=== PATIENT | female | born 1950 | race Two or more races ===

== ENCOUNTER 2024-05-28 09:30 | Outpatient (AMB) | payer MEDICARE, MEDICAID, SELFPAY ==
[2024-05-28 09:46] VITALS: BP 139/83; PULSE 83; RESP 18; TEMP 36.8; O2SAT 96; BMI 36.7
--- NOTE | 2024-05-28 09:46 | ORTHONT_ITS ---
Vital signs 05/28/24 09:46 Height 1.52 m Height Method Stated Weight 85.389 kg Weight Measurement Method Standing Scale BMI 36.7 BP 139/83 H Blood Pressure Source Automatic Cuff Blood Pressure Location Right Upper Arm Position Sitting Respiration 18 Pulse 83 Pulse Source Monitor Temp 98.2 F Temp Source Temporal Artery Scan Pulse Oximetry (%) 96 Oxygen Delivery Method Room Air Med/Allergies Allergies & Medications Allergies No Known Drug Allergies Allergy (Verified 05/28/24 09:46) Medication Reconciliation amlodipine 10 mg tablet 10 mg PO QDAY 05/28/24 [History Confirmed 05/28/24] atorvastatin 10 mg tablet 10 mg PO QDAY 05/28/24 [History Confirmed 05/28/24] cholecalciferol (vitamin D3) 25 mcg (1,000 unit) capsule 25 mcg PO QDAY 05/28/24 [History Confirmed 05/28/24] hydrochlorothiazide 25 mg tablet 25 mg PO QDAY 05/28/24 [History Confirmed 05/28/24] Subjective Visit Visit for: new patient and knee Immunization / Flu Flu Vaccine in the Last 12 Months: Yes Flu Vaccine Exclusion Criteria: Already Received History of Present Illness Chief complaint: KNEE PAIN Date of injury / onset of symptoms: 7 MONTHS 73-year-old female complaining of bilateral knee pain right more than left for 1 year. Patient has tried diclofenac cream and does exercises at home. She is using a walker. The pain is affecting her quality life and happiness. She has had extensive injections in her family and reports they do not work and she does not want them. They are very adamant that they do not want injections Personal History Occupation: UNEMPLOYED Red flag PMH: none Pain Pain level (0-10): 6 Pain duration: ALL DAY Pain location: inside (medial), outside (lateral), anterior and posterior Pain quality: sharp, dull and aching Pain timing: increases with activity Associated signs & symptoms: none Ambulatory data Ambulatory device: walker Treatments Improvement with previous injections: No Improvement with PT: No Improvement with NSAIDS: no Review of Systems Review of Systems: All systems negative unless otherwise noted in HPI. Exam Exam Patient is in no acute distress and is cooperative with the examination today. Breathing is nonlabored. In no respiratory distress. Bilateral extremities were evaluated and demonstrates sensation intact to light touch. Palpable pedal pulses are present. No significant edema is present. Bilateral hips were examined. The patient has no pain with log roll of the hips. Internal rotation to 30 degrees and external rotation to 30 degrees is painless. Negative FADIR. The left knee was examined. The left knee is in [varus] alignment. Range of motion from [0-115] degrees. Knee is stable to varus and valgus as well as AP translation with <5mm. Patient has a [negative] McMurrays. There is [no] pain with patellofemoral compression and [no] crepitus noted. The knee is [tender] to palpation [medially]. The right knee was also examined. The right knee is in [varus] alignment. Range of motion from [0-120] degrees. Knee is stable to varus and valgus as well as AP translation with <5mm. Patient has a [negative] McMurrays. There is [no] pain with patellofemoral compression and [no] crepitus noted. The knee is [tender] to palpation [medially]. I have a report from [facility] but no x-rays. This demonstrates severe arthritis according to the report Assessment and Plan Problem List (1) Degenerative arthritis of knee, bilateral: Status: Acute Plan: Patient is a pleasant 73-year-old female with bilateral knee pain and bilateral knee arthritis. We discussed nonoperative operative options. I would like to get x-rays to better evaluate her knee. We can discuss different treatment options depending what that shows Advanced Care Planning Discussion Advance care planning discussed with:: patient Office Procedures GNS Level of Care Nursing/Assessment Patient Status: Established Patient Nursing Assessment/Reassesment: Medication Reconciliation, Update PMH in EMR and Vital Signs Coordination of Care: Complex Care and Chronic Disease 1-5, Education Complex Pt/Fam, Consent,records obtained, informed consent, Results/Orders obtained and Staff clarify orders Special Needs: Language special needs Established Patient Charge Established Patient Point Assignment: 95 Established Patient Point Charge: EP Level 3 (80-115) Past Medical History Past Medical History Have you ever been diagnosed with any of the following: Respiratory Problems Smoking: No Smoking Exposure: No
== END 2024-05-28 10:07 | disposition home or self-care (01) ==
LOC: HODSRG 09:30
PROVIDERS: PCP Internal Medicine; Referring Provider Internal Medicine; Supervising Provider Orthopaedic Surgery Adult Reconstructive Orthopaedic Surgery; Visit Provider Orthopaedic Surgery Adult Reconstructive Orthopaedic Surgery
DX: M17.0 Bilateral primary osteoarthritis of knee (principal); M25.562 Pain in left knee; M25.561 Pain in right knee
CPT/HCPCS: 73562; 99213; G0463

== ENCOUNTER 2024-06-03 10:53 | Outpatient (AMB) | payer MEDICARE, MEDICAID, SELFPAY ==
--- NOTE | 2024-06-03 11:09 | PD.ORTHCLVIS ---
Vital signs 06/03/24 11:10 Height 1.52 m Height Method Stated Weight 85.049 kg Weight Measurement Method Standing Scale BMI 36.8 BP 128/81 Blood Pressure Source Automatic Cuff Blood Pressure Location Right Upper Arm Position Sitting Respiration 18 Pulse 88 Pulse Source Monitor Temp 97.5 F Temp Source Temporal Artery Scan Pulse Oximetry (%) 92 L Oxygen Delivery Method Room Air Med/Allergies Allergies & Medications Allergies No Known Drug Allergies Allergy (Verified 06/03/24 11:10) Medication Reconciliation amlodipine 10 mg tablet 10 mg PO QDAY 05/28/24 [History Confirmed 06/03/24] atorvastatin 10 mg tablet 10 mg PO QDAY 05/28/24 [History Confirmed 06/03/24] cholecalciferol (vitamin D3) 25 mcg (1,000 unit) capsule 25 mcg PO QDAY 05/28/24 [History Confirmed 06/03/24] hydrochlorothiazide 25 mg tablet 25 mg PO QDAY 05/28/24 [History Confirmed 06/03/24] Subjective Visit Visit for: follow up visit and x-rays Immunization / Flu Flu Vaccine in the Last 12 Months: No Flu Vaccine Exclusion Criteria: No Exclusion Criteria History of Present Illness Chief complaint: XRAY RESULTS Date of injury / onset of symptoms: 7 MONTHS 73-year-old female complaining of bilateral knee pain right more than left for 1 year. Patient has tried diclofenac cream and does exercises at home. She is using a walker. The pain is affecting her quality life and happiness. She has had extensive injections in her family and reports they do not work and she does not want them. They are very adamant that they do not want injections. The pain is affecting her quality of life and happiness Personal History Occupation: UNEMPLOYED Red flag PMH: none Pain Pain level (0-10): 4 Pain duration: WITH MOVEMENT Pain location: inside (medial) Pain quality: aching and tingling Pain timing: increases with activity Associated signs & symptoms: numbness and weakness Ambulatory data Ambulatory device: walker Treatments Improvement with previous injections: No Improvement with PT: No Improvement with NSAIDS: no Review of Systems Review of Systems: All systems negative unless otherwise noted in HPI. Exam Exam Patient is in no acute distress and is cooperative with the examination today. Breathing is nonlabored. In no respiratory distress. Bilateral extremities were evaluated and demonstrates sensation intact to light touch. Palpable pedal pulses are present. No significant edema is present. Bilateral hips were examined. The patient has no pain with log roll of the hips. Internal rotation to 30 degrees and external rotation to 30 degrees is painless. Negative FADIR. The left knee was examined. The left knee is in [varus] alignment. Range of motion from [0-115] degrees. Knee is stable to varus and valgus as well as AP translation with <5mm. Patient has a [negative] McMurrays. There is [no] pain with patellofemoral compression and [no] crepitus noted. The knee is [tender] to palpation [medially]. The right knee was also examined. The right knee is in [varus] alignment. Range of motion from [0-120] degrees. Knee is stable to varus and valgus as well as AP translation with <5mm. Patient has a [negative] McMurrays. There is [no] pain with patellofemoral compression and [no] crepitus noted. The knee is [tender] to palpation [medially]. Bilateral knee x-rays demonstrate severe varus deformity over 15 degrees. There is a femoral [place] on the left. There is extensive joint space narrowing bilaterally with varus deformity and osteophytes I have a report from [facility] but no x-rays. This demonstrates severe arthritis according to the report Assessment and Plan Problem List (1) Degenerative arthritis of knee, bilateral: Status: Acute Plan: Patient is a pleasant 73-year-old female with bilateral knee pain and bilateral knee arthritis. We discussed nonoperative operative options. Given her failure conservative treatment, and significant varus deformity, we discussed total knee replacement is reasonable option. She would like to start on the right as this is bothering her more The nature and purpose of the total knee replacement, alternative method(s) of treatment, the material risks involved, and the possibility of complications were fully explained to the patient. The patient does NOT have any of the following contraindications to TKA: - Active infection of the knee joint, OR - Active systemic bacteremia, OR - Active skin infection or open wound at surgical site, OR - Neuropathic arthritis, OR - Severe, rapidly progressive neurological disease, OR - Severe medical condition that makes risks of surgery outweigh the potential benefit The patient was told the most common risks and complications associated with a total knee replacement include, but are not limited to: blood clots in the leg, fatal pulmonary embolism, dislocation of the prosthesis, intraoperative and postoperative fractures of the femur or tibia, infection, failure of the prosthesis or grafting materials, complications from anesthesia, reactions to blood transfusions, postoperative leg length inequality, instability of the knee replacement, nerve damage or injury, vascular injury, delayed wound healing, infection, other injury or even . In addition, there are risks associated with anesthesia given during this operation. Also, the patient was told that after undergoing a total knee replacement there may still be persistent pain or disability. The patient was informed that the success of this operation in part depends upon the mechanical devices which are going to be implanted and that these devices can fail or malfunction, and may need to be repaired or replaced and there are no guarantees as to the longevity of this device or its parts and that it or its parts could fail prematurely. The patient was also notified that during the course of surgery, there may be a need to use bone graft from donors, and that any bone graft used will be carefully screened for communicable diseases, including AIDS, hepatitis, Kevin-Creutzfeldt, or other diseases, but despite the screening procedures, there is a small chance that they could contract one of these diseases. Finally, the patient was asked to follow completely and fully with all advice and recommended treatments, and that recovery and ultimate outcome are affected by their compliance with recommended treatment. We discussed the risks, benefits and treatment alternatives, and the patient is interested in proceeding with surgery. We will try to set this up as expeditiously as possible. Advanced Care Planning Discussion Advance care planning discussed with:: patient Office Procedures GNS Level of Care Nursing/Assessment Patient Status: Established Patient Nursing Assessment/Reassesment: Medication Reconciliation, Update PMH in EMR and Vital Signs Coordination of Care: Complex Care and Chronic Disease 1-5, Education Complex Pt/Fam, Consent,records obtained, informed consent, 1 Ins Authorization, Lab and Imaging orders, Results/Orders obtained and Staff clarify orders Special Needs: Language special needs Established Patient Charge Established Patient Point Assignment: 125 Established Patient Point Charge: EP Level 3 (80-115) Past Medical History Past Medical History Have you ever been diagnosed with any of the following: Respiratory Problems Smoking: No Smoking Exposure: No
[2024-06-03 11:10] VITALS: BP 128/81; PULSE 88; RESP 18; TEMP 36.4; O2SAT 92; BMI 36.8
== END 2024-06-03 11:24 | disposition home or self-care (01) ==
LOC: HODSRG 10:53
PROVIDERS: PCP Internal Medicine; Referring Provider Internal Medicine; Supervising Provider Orthopaedic Surgery Adult Reconstructive Orthopaedic Surgery; Visit Provider Orthopaedic Surgery Adult Reconstructive Orthopaedic Surgery
DX: M17.0 Bilateral primary osteoarthritis of knee (principal); M25.562 Pain in left knee; M25.561 Pain in right knee
CPT/HCPCS: 99213; G0463

== ENCOUNTER 2024-12-24 10:06 | Outpatient (AMB) | payer MEDICARE, MEDICAID, SELFPAY ==
[2024-12-24 10:19] VITALS: BP 142/83; PULSE 95; RESP 18; TEMP 36.3; O2SAT 92; BMI 36.4
--- NOTE | 2024-12-24 10:19 | PD.ORTHCLVIS ---
Vital signs 12/24/24 10:19 Height 1.52 m Height Method Stated Weight 84.17 kg Weight Measurement Method Standing Scale BMI 36.4 BP 142/83 H Blood Pressure Source Automatic Cuff Blood Pressure Location Left Upper Arm Position Sitting Respiration 18 Pulse 95 Pulse Source Monitor Temp 97.3 F Temp Source Temporal Artery Scan Pulse Oximetry (%) 92 L Oxygen Delivery Method Room Air Med/Allergies Allergies & Medications Allergies No Known Drug Allergies Allergy (Verified 12/24/24 10:20) Medication Reconciliation amlodipine 10 mg tablet 10 mg PO QDAY 05/28/24 [History Confirmed 12/24/24] atorvastatin 10 mg tablet 10 mg PO QDAY 05/28/24 [History Confirmed 12/24/24] cholecalciferol (vitamin D3) 25 mcg (1,000 unit) capsule 25 mcg PO QDAY 05/28/24 [History Confirmed 12/24/24] hydrochlorothiazide 25 mg tablet 25 mg PO QDAY 05/28/24 [History Confirmed 12/24/24] Exam Exam Patient is in no acute distress and is cooperative with the examination today. Breathing is nonlabored. In no respiratory distress. Bilateral extremities were evaluated and demonstrates sensation intact to light touch. Palpable pedal pulses are present. No significant edema is present. Bilateral hips were examined. The patient has no pain with log roll of the hips. Internal rotation to 30 degrees and external rotation to 30 degrees is painless. Negative FADIR. The left knee was examined. The left knee is in [varus] alignment. Range of motion from [0-115] degrees. Knee is stable to varus and valgus as well as AP translation with <5mm. Patient has a [negative] McMurrays. There is [no] pain with patellofemoral compression and [no] crepitus noted. The knee is [tender] to palpation [medially]. The right knee was also examined. The right knee is in [varus] alignment. Range of motion from [0-120] degrees. Knee is stable to varus and valgus as well as AP translation with <5mm. Patient has a [negative] McMurrays. There is no pain with patellofemoral compression and no crepitus noted. The knee is [tender] to palpation [medially]. Bilateral knee x-rays demonstrate severe varus deformity over 15 degrees. There is a femoral [place] on the left. There is extensive joint space narrowing bilaterally with varus deformity and osteophytes I have a report from [facility] but no x-rays. This demonstrates severe arthritis according to the report Assessment and Plan Problem List (1) Degenerative arthritis of knee, bilateral: Status: Acute Plan: Patient is a pleasant 73-year-old female with bilateral knee pain and bilateral knee arthritis. We discussed nonoperative operative options. Given her failure conservative treatment, and significant varus deformity, we discussed total knee replacement is reasonable option. She would like to start on the right as this is bothering her more The nature and purpose of the total knee replacement, alternative method(s) of treatment, the material risks involved, and the possibility of complications were fully explained to the patient. The patient does NOT have any of the following contraindications to TKA: - Active infection of the knee joint, OR - Active systemic bacteremia, OR - Active skin infection or open wound at surgical site, OR - Neuropathic arthritis, OR - Severe, rapidly progressive neurological disease, OR - Severe medical condition that makes risks of surgery outweigh the potential benefit The patient was told the most common risks and complications associated with a total knee replacement include, but are not limited to: blood clots in the leg, fatal pulmonary embolism, dislocation of the prosthesis, intraoperative and postoperative fractures of the femur or tibia, infection, failure of the prosthesis or grafting materials, complications from anesthesia, reactions to blood transfusions, postoperative leg length inequality, instability of the knee replacement, nerve damage or injury, vascular injury, delayed wound healing, infection, other injury or even . In addition, there are risks associated with anesthesia given during this operation. Also, the patient was told that after undergoing a total knee replacement there may still be persistent pain or disability. The patient was informed that the success of this operation in part depends upon the mechanical devices which are going to be implanted and that these devices can fail or malfunction, and may need to be repaired or replaced and there are no guarantees as to the longevity of this device or its parts and that it or its parts could fail prematurely. The patient was also notified that during the course of surgery, there may be a need to use bone graft from donors, and that any bone graft used will be carefully screened for communicable diseases, including AIDS, hepatitis, Ekvin-Creutzfeldt, or other diseases, but despite the screening procedures, there is a small chance that they could contract one of these diseases. Finally, the patient was asked to follow completely and fully with all advice and recommended treatments, and that recovery and ultimate outcome are affected by their compliance with recommended treatment. We discussed the risks, benefits and treatment alternatives, and the patient is interested in proceeding with surgery. We will try to set this up as expeditiously as possible. Advanced Care Planning Discussion Advance care planning discussed with:: patient Office Procedures GNS Level of Care Nursing/Assessment Patient Status: Established Patient Nursing Assessment/Reassesment: Medication Reconciliation, Update PMH in EMR and Vital Signs Coordination of Care: Complex Care and Chronic Disease 1-5, Education Complex Pt/Fam, Consent,records obtained, informed consent, Results/Orders obtained and Staff clarify orders Special Needs: Language special needs (UPP[employer] [place] ) Established Patient Charge Established Patient Point Assignment: 95 Established Patient Point Charge: EP Level 3 (80-115) MA Intake Visit Data Collection New Patient or Established: Established Patient (seen at [facility] within 3 years) Reason for Visit:: PRE OP RT KNEE Seen by Clinical Staff ONLY (RN/MA): No Pediatric Registered Nurse Required: Yes PCP or OBGYN visit in last 3 months: Yes Hx Now: No Do You Feel Safe at Home: Yes Authorities Contacted: N/A Questionairres Past Medical History Past Medical History Have you ever been diagnosed with any of the following: Respiratory Problems Smoking: No Smoking Exposure: No Subjective Visit Visit for: follow up visit and knee (PRE OP RIGHT KNEE ) Immunization / Flu Flu Vaccine in the Last 12 Months: Yes Flu Vaccine Exclusion Criteria: Already Received History of Present Illness Chief complaint: bilteral knee 73-year-old female complaining of bilateral knee pain right more than left for 1 year. Patient has tried diclofenac cream and does exercises at home. She is using a walker. The pain is affecting her quality life and happiness. She has had extensive injections in her family and reports they do not work and she does not want them. They are very adamant that they do not want injections. The pain is affecting her quality of life and happiness. Her diabetes is well controlled at this point in time. Personal History Red flag PMH: none Pain Pain level (0-10): 8 Pain duration: 1 YEAR Pain location: anterior Pain quality: burning Pain timing: increases with activity Associated signs & symptoms: weakness and stiffness Ambulatory data Ambulatory device: cane Walking distance (minutes): 1 Treatments Number of previous injections: 0 Number of Physical Therapy sessions: 4 Improvement with PT: No Improvement with NSAIDS: n/a Review of Systems Review of Systems: All systems negative unless otherwise noted in HPI.
== END 2024-12-24 10:28 | disposition home or self-care (01) ==
LOC: HODSRG 10:06
PROVIDERS: PCP Internal Medicine; Referring Provider Internal Medicine; Supervising Provider Orthopaedic Surgery Adult Reconstructive Orthopaedic Surgery; Visit Provider Orthopaedic Surgery Adult Reconstructive Orthopaedic Surgery
DX: M17.0 Bilateral primary osteoarthritis of knee (principal); M25.562 Pain in left knee; M25.561 Pain in right knee; E11.9 Type 2 diabetes mellitus without complications
CPT/HCPCS: 99213; G0463

== ENCOUNTER → 2024-12-24 | Outpatient (CLI) | payer MEDICARE, MEDICAID, SELFPAY ==
--- NOTE | 2024-12-24 10:47 | XR_ITS ---
Examination: CT right lower extremity without contrast. 2-D sagittal reconstructions. 2-D coronal reconstructions. 3-D reconstructions. Date and time of exam:December 24, 2024 1120 hours INDICATIONS: Knee pain, right, several years CTDI: vol (mGy):27.8 DLP: (mGycm):1265 Technique: Multiple 1.25 mm axial sections of the right lower extremity without intravenous contrast have been obtained. 2-D sagittal and coronal reconstructions have been obtained. 3-D reconstructions have been obtained. Low dose protocols were performed. One or more of the following dose reduction techniques were used; automated exposure control, adjustment of the mA and/or KV according to patient size, use of iterative reconstruction technique. Findings: Moderate osteopenia Moderate narrowing right hip joint No hip fracture or dislocation Advanced right knee tricompartment osteoarthritis, severe narrowing medial joint space No patellar dislocation No fracture IMPRESSION: Advanced right knee tricompartment osteoarthritis, including severe narrowing medial joint space
== END | disposition home or self-care (01) ==
PROVIDERS: PCP Internal Medicine; Referring Provider Orthopaedic Surgery Adult Reconstructive Orthopaedic Surgery; Visit Provider Orthopaedic Surgery Adult Reconstructive Orthopaedic Surgery
DX: M25.861 Other specified joint disorders, right knee (principal)
CPT/HCPCS: 73700

== ENCOUNTER → 2024-12-29 | Outpatient (CLI) | payer MEDICARE, MEDICAID, SELFPAY ==
--- NOTE | 2024-12-29 | XR_ITS ---
Examination: CT right lower extremity without intravenous contrast, 2-D sagittal reconstructions. 2-D coronal reconstructions. 3-D reconstructions. Date and time of exam:December 29, 2024 1216 hours INDICATIONS: Diagnosis unilateral right knee osteoarthritis right knee pain for years CTDI: vol (mGy):12.7 DLP: (mGycm):890 Technique: Multiple 1.25 mm axial sections of the right lower extremity without intravenous contrast have been obtained. 2-D sagittal and coronal reconstructions have been obtained. 3-D reconstructions have been obtained. Low dose protocols were performed. One or more of the following dose reduction techniques were used; automated exposure control, adjustment of the mA and/or KV according to patient size, use of iterative reconstruction technique. Findings: Prominent osteopenia Moderate narrowing right hip joint No right hip fracture or dislocation Advanced right knee tricompartment osteoarthritis No right knee fracture No patellar dislocation IMPRESSION: Advanced right knee tricompartment osteoarthritis
== END | disposition home or self-care (01) ==
PROVIDERS: PCP Internal Medicine; Referring Provider Orthopaedic Surgery Adult Reconstructive Orthopaedic Surgery; Visit Provider Orthopaedic Surgery Adult Reconstructive Orthopaedic Surgery
DX: M17.11 Unilateral primary osteoarthritis, right knee (principal)
CPT/HCPCS: 73700

== ENCOUNTER 2025-01-05 06:42 | Day surgery (SDC) | payer MEDICARE, MEDICAID, SELFPAY ==
[2025-01-04 09:29] VITALS: BMI 40.2
--- NOTE | 2025-01-04 09:43 | EKG_ITS ---
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
[2025-01-04 11:25] LABS: Basophils # (Auto) 0.1 Thou/mm3 (0.0-0.2); Basophils % (Auto) 1 % (0-2.5); Eosinophils # (Auto) 0.2 Thou/mm3 (0.0-0.5); Eosinophils % (Auto) 2 % (0-10); Hematocrit 47.2 % (36.0-46.0); Immature Granulocytes % (Auto) 1 % (0-0); Immature Granulocytes Auto 0.05 Thou/mm3 (0.00-0.00); Lymphocytes # (Auto) 2.2 Thou/mm3 (1.0-4.8); Lymphocytes % (Auto) 24 % (10-50); Mean Corpuscular HGB Conc 33.9 g/dl (31.0-37.0); Mean Corpuscular Hemoglobin 32.5 pg (25.0-35.0); Mean Corpuscular Volume 96 fL (80-100); Monocytes # (Auto) 0.7 Thou/mm3 (0.0-0.8); Monocytes % (Auto) 8 % (0-12); Neutrophils # (Auto) 5.8 Thou/mm3 (1.8-7.7); Neutrophils % (Auto) 64 % (37-80); Nucleated Red Blood Cell % 0 /100 WBC (0); Platelet Count 285 Thou/mm3 (140-440); RDW Standard Deviation 51.6 fL (36.4-46.3); Red Blood Count 4.92 Miln/mm3 (4.00-5.20)
[2025-01-04 11:33] LABS: INR 1.1 (0.9-1.3); Prothrombin Time 11.6 Seconds (9.0-12.2)
[2025-01-04 11:38] LABS: Alanine Aminotransferase 29 U/L (10-49); Albumin, Serum 4.4 gm/dL (3.4-4.8); Albumin/Globulin Ratio 1.3 (1.2-2.2); Alkaline Phosphatase 96 U/L (46-116); Anion Gap 11 (7-16); BUN/Creatinine Ratio 15 Ratio (12-20); Blood Urea Nitrogen 12 mg/dL (9-23); Calcium 10.1 mg/dL (8.3-10.6); Calcium (Corrected) 10.1 mg/dL (8.5-10.1); Carbon Dioxide 27.6 mMol/L (20.0-31.0); Chloride 102 mMol/L (98-107); Creatinine (Component) 0.8 mg/dL (0.6-1.3); Estimated Creatinine Clearance 56.3 mL/min (>60); Globulin 3.3 gm/dL (2.3-3.5); Glucose 156 mg/dL (74-106); Osmolality,Calculated 283 (275-295); Sodium 141 mMol/L (136-145); Total Protein 7.7 gm/dL (5.7-8.2); eGFR > 60 See Note
[2025-01-05] VITALS (19 sets, daily range): BP systolic 110–152; BP diastolic 66–104; PULSE 96–122; RESP 12–20; TEMP 36.4–36.9; O2SAT 93–97; BMI 39.4
[2025-01-05] MEDS: MELOXICAM 7.5 MG TABLET PO (07:36)
[2025-01-05] MEDS: ACETAMINOPHEN 325 MG TABLET 650 MG PO (07:36)
[2025-01-05] MEDS: PREGABALIN 75 MG CAPSULE PO (07:36)
--- NOTE | 2025-01-05 12:50 | PD.SUROPNT ---
Date of Procedure 01/05/25 Pre Op Diagnosis right knee osteoarthritis Post Op Diagnosis right knee osteoarthritis Procedure right total knee replacement blake Findings full thickness cartilage loss and osteophytes Procedure Description Indication: The patient is a 74 year old who has a long history of right knee pain. X-rays show degenerative arthritis involving the knee. Over the past several years the patient has had increasing pain, progressive limitation in function. He has failed conservative measures including activity modification, physical therapy, injections, anti-inflammatories, and assistive devices. After a lengthy discussion of the risks and benefits, the patient presents now for total knee replacement. The nature and purpose of the total knee replacement, alternative method(s) of treatment, the material risks involved, and the possibility of complications were fully explained to the patient. The patient was told the most common risks and complications associated with a total knee replacement include, but are not limited to blood clots in the leg, fatal pulmonary embolism, dislocation of the prosthesis, intraoperative and postoperative fractures of the femur or tibia, infection, failure of the prosthesis or grafting materials, complications from anesthesia, reactions to blood transfusions, postoperative leg length inequality, instability of the knee replacement, nerve damage or injury, vascular injury, delayed wound healing, infections, other injury or even . In addition, there are risks associated with anesthesia given during this operation, temporary or permanent numbness on the skin lateral to the incision can be a complication unique to total knee surgery, and kneeling can be painful after knee replacement surgery. Also, the patient was told that after undergoing a total knee replacement there may still be pain or disability. We discussed with the patient that we will be using a robot-assisted technology. We discussed that there is a possibility of converting to manual instrumentation. The patient was informed that the success of this operation in part depends upon the mechanical devices which are going to be implanted and that these devices can fail or malfunction, and may need to be repaired or replaced and there are no guarantees as to the longevity of this device or its part and that it or its parts could fail prematurely. Finally, the patient was asked to follow completely and fully with all advice and recommended treatments, and that recovery and ultimate outcome are affected by their compliance with recommended treatment. Surgical technique: Patient was marked and consented in the pre-operative area. The patient was brought to the operating room and placed on the operating table in a supine position. Prior to positioning, a timeout procedure was performed between the surgeon, the anesthesiologist, and the nursing staff where the patient and the operative side were identified and confirmed. After adequate general anesthetic was obtained, the right lower extremity was prepped and draped in the usual sterile fashion. A weight based dose of Cefazolin were administered within 1 hour prior to incision. The robot was preregistered and calirated before the incision. The extremity was exsanguinated with an esmarch badge and tourniquet inflated to 250mmHg. A midline incision was made. A median parapatellar arthrotomy was made. The patella was subluxed laterally. A medial release was performed to expose the medial tibia. His femoral and tibial pins were placed through an intra incisional manner for both cases. Every effort was made to ensure that the distalmost aspect of the pin was hung in the second cortex. The arrays were then tightened several times to ensure that it was fixed for the remainder of the case. Both femoral and tibial checkpoints were then placed. We then went through the registration process of the bone. We then assessed the knee deformity and attempted to correct it. We also used the robot to aid in judging laxity in both extension and flexion. Final based on laxity and alignment we changed the preoperative assessment to obtain proper proper implant positioning and to correct deformity. Attention was then placed to the tibia. We made a tibial cut using the robot ensuring that both the MCL and the patella tendon were protected with retractors. We then went to the femur and made the posterior cut followed by the anterior cut and the anterior chamfer. The bone was then removed and we made a distal femur cut and a posterior chamfer cut. We verified all cuts. A trial reduction was performed with a size 3 femoral component and a size 3 keeled tibial component. The patella tracked centrally, and no lateral retinacular release was necessary. The trial implants were removed. The arrays, pins, and checkpoints were all removed. We performed a verification that all pins were removed. The cut bone surfaces were lavaged. A size [3 right femoral component, a size 3 keeled tibial component were impacted into position using 2 bags of palacos. A trial insert was placed. The knee was placed in extension until the cement hardened. The knee was felt to be well balanced in the sagittal and coronal plane. The final [3x10 mm cruciate-substituting articular insert was impacted into the tibial tray. The knee was brought out to full extension, flexed up to 120 degrees. It was stable to varus and valgus stress and appropriately balanced in flexion and extension. The wounds were copiously irrigated following deflation of tourniquet. The medial retinaculum was reapproximated with #1 vicryl and quill. The subcutaneous tissues were closed with 0 and 2-0 interrupted Vicryl. The skin was closed with 3-0 Monofilament V loc suture. A sterile dressing was applied. The patient was transferred to a bed and brought to recovery in stable condition. The patient tolerated the procedure well. There were no intraoperative complications. Sponge and needle counts were correct times 2. As the attending surgeon, I attest I was present and performed the entire operation. Grafts/Implants Size 3 CR Femur Size 3 Tibia 11mm poly CS 2 bags of palacos Anesthesia GETA Implants ana Pathology / specimen None Pathology comment: none Estimated Blood Loss 150 Condition Stable Disposition same day Surgeon Shimon Garrison MD Surgical Staff Operation Date: 01/05/25 11:15 Case Staff Anesthesiologist: Nathan White RN First Assistant: Lori Bustamante
--- NOTE | 2025-01-05 12:57 | SUR.PHASEI ---
pt received from OR in recovery bay 5. pt asleep but responds to voice, breathing unlabored on oxymask 10. v/s stable. pt dressing to right lower extremity cdi. report received from Jason Weber and Kal PRESSLEY.
--- NOTE | 2025-01-05 13:47 | XR_ITS ---
Examination: Knee, right , 3 views Technique: Knee AP, lateral, oblique 3 views Date and time of exam: January 05, 2025 1429 hours INDICATIONS: Postop knee replacement. FINDINGS: Total right knee arthroplasty. Satisfactory alignment No fracture IMPRESSION: Total right knee arthroplasty with satisfactory alignment
--- NOTE | 2025-01-05 15:04 | SUR.PHASEI ---
Called Dr. White to report pts elevated heart rate, states will check on pt when finished with surgery. no new orders received.
--- NOTE | 2025-01-05 16:00 | SUR.PHASEII ---
Dr. White at bedside to examine pt. states pt does not require intervention for elevated heart rate, ok with discharge.
--- NOTE | 2025-01-05 16:17 | SUR.PHASEII ---
pt awake and alert, breathing unlabored on room air. v/s stable. pt dressing to right lower extremity cdi. report given to Caor Weiss RN.
--- NOTE | 2025-01-05 16:17 | SUR.PHASEII ---
1617 Report received from Sebastian BECKETT, patient sitting in [place], working with incentive spirometer, breathing unlabored, vital signs stable, denies pain and nausea, will call physical therapy for patient to work with patient
--- NOTE | 2025-01-05 16:25 | SUR.PHASEII ---
[id number] Family at bedside with patient
--- NOTE | 2025-01-05 16:52 | SUR.PHASEII ---
1657 Patient cleared by physical therapy Meryl to proceed with discharge
--- NOTE | 2025-01-05 17:50 | SUR.PHASEII ---
[address] Garrison via telephone that patients pharmacy [facility] in [place] is now close, called the at [phone] and they stated her medication would not be ready until 0930 01/06/2025, Dr. Garrison stated he would put in new prescription for patients pharmacy of choice [facility] [address] in [place] , this internal communications writer will update patient pharmacy [phone] Dr. Garrison notified pharmacy is unable to fill prescription as previous pharmacy [facility] already billed insurance for all the medications, Dr. Garrison advised this internal communications writer to call in-house pharmacy to see if there was anything that could be done for this patient [address] Garrison that in-house pharmacy unable to give patient any medication, Dr. Garrison had this internal communications writer ask patient and her family if they are ok going home and taking Tylenol tonight for pain and picking up medication in the morning as the pharmacy said they would be ready, patient and her family stated they were ok with the plan will proceed with discharge.
--- NOTE | 2025-01-05 18:04 | SUR.PHASEII ---
1804 Patient meets discharge criteria from recovery, awake and alert, breathing unlabored, vital signs stable, denies pain, dressing intact; no bleeding noted, ate a jello and drinking 7up; denies nausea, voided in the restroom prior to discharge, discharge instructions given to patient, her son and sister with the assistance of the telephone clinical pharmacologist Lois ID#[id number], patient sister signed discharge instructions. Patient given all her belongings prior to discharge, transported via wheelchair and left in a private vehicle.
== END 2025-01-05 18:04 | disposition home health service (06) ==
PROVIDERS: Anesthesiology; PCP Internal Medicine; Referring Provider Orthopaedic Surgery Adult Reconstructive Orthopaedic Surgery; Visit Provider Orthopaedic Surgery Adult Reconstructive Orthopaedic Surgery
PROC: (CPT 27447; principal; 2025-01-05 11:00)
DX: M17.11 Unilateral primary osteoarthritis, right knee (principal); Z01.810 Encounter for preprocedural cardiovascular examination; M25.761 Osteophyte, right knee
CPT/HCPCS: 27447; 20985; 36415; 73560; 80053; 85025; 85610; 85730; 93005; 97162; A4217; C1713; C1776; J0690; J1171; J2250; J2371; J2704; J2765; J3010; J3490; J7999; A4648; A4649; A9270; J1805

== ENCOUNTER 2025-01-20 10:48 | Outpatient (AMB) | payer MEDICARE, MEDICAID, SELFPAY ==
--- NOTE | 2025-01-20 11:07 | PD.ORTHCLVIS ---
Vital signs 01/20/25 11:08 Height 1.45 m Height Method Stated Weight 82.809 kg Weight Measurement Method Standing Scale BMI 39.4 BP 135/87 H Blood Pressure Source Automatic Cuff Blood Pressure Location Left Upper Arm Position Sitting Respiration 18 Pulse 106 H Pulse Source Monitor Temp 97.6 F Temp Source Temporal Artery Scan Pulse Oximetry (%) 95 Oxygen Delivery Method Room Air Med/Allergies Allergies & Medications Allergies No Known Drug Allergies Allergy (Verified 01/20/25 11:08) Medication Reconciliation amlodipine 10 mg tablet 10 mg PO QDAY 05/28/24 [History Confirmed 01/20/25] hydrochlorothiazide 25 mg tablet 25 mg PO QDAY 05/28/24 [History Confirmed 01/20/25] atorvastatin 40 mg tablet 40 mg PO QDAY 01/04/25 [History Confirmed 01/20/25] empagliflozin 25 mg tablet (Jardiance) 25 mg PO QAM 01/04/25 [History Confirmed 01/20/25] acetaminophen 500 mg tablet (Acetaminophen Extra Strength) 1,000 mg (2 x 500 mg) PO Q6H PRN pain #90 tabs 01/05/25 [Rx Confirmed 01/20/25] acetaminophen 500 mg tablet (Acetaminophen Extra Strength) 1,000 mg (2 x 500 mg) PO Q6H PRN pain #90 tabs 01/05/25 [Rx Confirmed 01/20/25] aspirin 81 mg tablet,delayed release 81 mg PO BID #60 tabs 01/05/25 [Rx Confirmed 01/20/25] aspirin 81 mg tablet,delayed release 81 mg PO BID #60 tabs 01/05/25 [Rx Confirmed 01/20/25] doxycycline hyclate 100 mg tablet 100 mg PO BID #14 tabs 01/05/25 [Rx Confirmed 01/20/25] doxycycline hyclate 100 mg tablet 100 mg PO BID #14 tabs 01/05/25 [Rx Confirmed 01/20/25] gabapentin 300 mg capsule 300 mg PO .qhs #30 caps 01/05/25 [Rx Confirmed 01/20/25] gabapentin 300 mg capsule 300 mg PO .qhs #30 caps 01/05/25 [Rx Confirmed 01/20/25] oxycodone 5 mg tablet 5 mg PO Q6H PRN pain #28 tabs 01/05/25 [Rx Confirmed 01/20/25] sennosides 8.6 mg-docusate sodium 50 mg tablet (Senna-S) 1 tab-cap PO QDAY #30 tabs 01/05/25 [Rx Confirmed 01/20/25] sennosides 8.6 mg-docusate sodium 50 mg tablet (Senna-S) 1 tab-cap PO QDAY #30 tabs 01/05/25 [Rx Confirmed 01/20/25] Exam Exam Patient is in no acute distress and is cooperative with the examination today. Breathing is nonlabored. In no respiratory distress. Bilateral extremities were evaluated and demonstrates sensation intact to light touch. Palpable pedal pulses are present. No significant edema is present. Bilateral hips were examined. The patient has no pain with log roll of the hips. Internal rotation to 30 degrees and external rotation to 30 degrees is painless. Negative FADIR. The left knee was examined. The left knee is in [varus] alignment. Range of motion from [0-115] degrees. Knee is stable to varus and valgus as well as AP translation with <5mm. Patient has a [negative] McMurrays. There is [no] pain with patellofemoral compression and [no] crepitus noted. The knee is [tender] to palpation [medially]. Right knee incision is clean dry and intact Assessment and Plan Problem List (1) Degenerative arthritis of knee, bilateral: Status: Acute Plan: Patient is a pleasant 73-year-old female with bilateral knee pain and bilateral knee arthritis. She is doing well status post right total knee replacement. She is happy with her pain relief. Will see her in approximately 4 weeks. Will start her with therapy Advanced Care Planning Discussion Advance care planning discussed with:: patient and child Office Procedures GNS Level of Care Nursing/Assessment Patient Status: Established Patient Nursing Assessment/Reassesment: Medication Reconciliation, Update PMH in EMR and Vital Signs Coordination of Care: Complex Care and Chronic Disease 1-5, Education Complex Pt/Fam, Consent,records obtained, informed consent, Results/Orders obtained and Staff clarify orders Established Patient Charge Established Patient Point Assignment: 95 Established Patient Point Charge: EP Level 3 (80-115) MA Intake Visit Data Collection New Patient or Established: Established Patient (seen at [facility] within 3 years) Reason for Visit:: FOLLOW UP Seen by Clinical Staff ONLY (RN/MA): No Coke Production Heater Required: Yes PCP or OBGYN visit in last 3 months: Yes Hx Now: No Do You Feel Safe at Home: Yes Authorities Contacted: N/A Questionairres Past Medical History Past Medical History Have you ever been diagnosed with any of the following: Neurological Problems Seizures: No Cardiology Problems Hypercholesterolemia: Yes Congestive Heart Failure: No Hypertension: Yes Respiratory Problems Chronic Obstructive Pulmonary Disease (COPD): No Smoking: No Smoking Exposure: No Stomache/Intestinal Problems Hepatitis: No Obesity: Yes Genital/Urinary Problems Renal Disease: No Reproductive Problems Previous Pregnancies: Yes Musculoskeletal Problems Arthritis: Yes Fractures: Yes (left femur) Head,Eye,Nose,Throat Problems Cataracts: Yes (bilateral) Endocrine Problems Diabetes Mellitus Type 1: No Diabetes Mellitus Type 2: Yes Other Problems Hospitalization: No Shingles: No Blood Transfusions: No Blood Transfusion Reaction: No Anesthesia Reactions: No Cancer: No Subjective Visit Visit for: follow up visit and knee Immunization / Flu Flu Vaccine in the Last 12 Months: No Flu Vaccine Exclusion Criteria: No Exclusion Criteria History of Present Illness Chief complaint: bilteral knee 73-year-old female complaining of bilateral knee pain right more than left for 1 year. She is doing well status post right total knee replacement. She is 2 weeks postop Personal History Red flag PMH: none Pain Pain level (0-10): 0 Pain duration: 1 YEAR Pain location: anterior Pain quality: burning Pain timing: increases with activity Associated signs & symptoms: none Ambulatory data Ambulatory device: walker Walking distance (minutes): 1 Treatments Number of previous injections: 0 Improvement with previous injections: No Number of Physical Therapy sessions: 4 Improvement with PT: No Improvement with NSAIDS: no Review of Systems Review of Systems: All systems negative unless otherwise noted in HPI.
[2025-01-20 11:08] VITALS: BP 135/87; PULSE 106; RESP 18; TEMP 36.4; O2SAT 95; BMI 39.4
== END 2025-01-20 11:11 | disposition home or self-care (01) ==
PROVIDERS: PCP Internal Medicine; Referring Provider Internal Medicine; Supervising Provider Orthopaedic Surgery Adult Reconstructive Orthopaedic Surgery; Visit Provider Orthopaedic Surgery Adult Reconstructive Orthopaedic Surgery
DX: M17.0 Bilateral primary osteoarthritis of knee (principal); M25.562 Pain in left knee; M25.561 Pain in right knee; Z96.651 Presence of right artificial knee joint; I10 Essential (primary) hypertension; E78.00 Pure hypercholesterolemia, unspecified; E11.9 Type 2 diabetes mellitus without complications
CPT/HCPCS: 99213; G0463

== ENCOUNTER 2025-02-17 13:21 | Outpatient (AMB) | payer MEDICARE, SELFPAY ==
--- NOTE | 2025-02-17 13:52 | ORTHONT_ITS ---
Vital signs 02/17/25 13:56 Height 1.45 m Height Method Stated Weight 82.1 kg Weight Measurement Method Standing Scale BMI 39.0 BP 146/82 H Blood Pressure Source Automatic Cuff Blood Pressure Location Left Upper Arm Position Sitting Respiration 19 Pulse 101 H Pulse Source Monitor Temp 97.4 F Temp Source Temporal Artery Scan Pulse Oximetry (%) 94 L Oxygen Delivery Method Room Air Med/Allergies Allergies & Medications Allergies No Known Drug Allergies Allergy (Verified 02/17/25 13:56) Medication Reconciliation amlodipine 10 mg tablet 10 mg PO QDAY 05/28/24 [History Confirmed 02/17/25] hydrochlorothiazide 25 mg tablet 25 mg PO QDAY 05/28/24 [History Confirmed 02/17/25] atorvastatin 40 mg tablet 40 mg PO QDAY 01/04/25 [History Confirmed 02/17/25] empagliflozin 25 mg tablet (Jardiance) 25 mg PO QAM 01/04/25 [History Confirmed 02/17/25] doxycycline hyclate 100 mg tablet 100 mg PO BID #14 tabs 01/05/25 [Rx Confirmed 02/17/25] gabapentin 300 mg capsule 300 mg PO .qhs #30 caps 01/05/25 [Rx Confirmed 02/17/25] oxycodone 5 mg tablet 5 mg PO Q6H PRN pain #28 tabs 01/05/25 [Rx Confirmed 02/17/25] Exam Exam Patient is in no acute distress and is cooperative with the examination today. Breathing is nonlabored. In no respiratory distress. Bilateral extremities were evaluated and demonstrates sensation intact to light touch. Palpable pedal pulses are present. No significant edema is present. Bilateral hips were examined. The patient has no pain with log roll of the hips. Internal rotation to 30 degrees and external rotation to 30 degrees is painless. Negative FADIR. The left knee was examined. The left knee is in [varus] alignment. Range of motion from [0-115] degrees. Knee is stable to varus and valgus as well as AP translation with <5mm. Patient has a [negative] McMurrays. There is [no] pain with patellofemoral compression and [no] crepitus noted. The knee is [tender] to palpation [medially]. Right knee incision is clean dry and intact. Range of motion is 0 to 105 degrees. He Assessment and Plan Problem List (1) Degenerative arthritis of knee, bilateral: Status: Acute Plan: Patient is a pleasant 73-year-old female with bilateral knee pain and bilateral knee arthritis. She is doing well status post right total knee replacement. We will get new x-rays and see her in approximately 6 weeks Advanced Care Planning Discussion Advance care planning discussed with:: patient Office Procedures GNS Level of Care Nursing/Assessment Patient Status: Established Patient Nursing Assessment/Reassesment: Medication Reconciliation, Update PMH in EMR and Vital Signs Coordination of Care: Complex Care and Chronic Disease 1-5, Education Complex Pt/Fam, Consent,records obtained, informed consent, Results/Orders obtained and Staff clarify orders Special Needs: Language special needs Established Patient Charge Established Patient Point Assignment: 95 Established Patient Point Charge: EP Level 3 (80-115) MA Intake Visit Data Collection New Patient or Established: Established Patient (seen at [facility] within 3 years) Reason for Visit:: 6 WEEK POST OP R TKA Seen by Clinical Staff ONLY (RN/MA): No Organisational Psychologist Required: Yes PCP or OBGYN visit in last 3 months: Yes Hx Now: No Do You Feel Safe at Home: Yes Authorities Contacted: N/A Questionairres Past Medical History Past Medical History Have you ever been diagnosed with any of the following: Neurological Problems Seizures: No Cardiology Problems Hypercholesterolemia: Yes Congestive Heart Failure: No Hypertension: Yes Respiratory Problems Chronic Obstructive Pulmonary Disease (COPD): No Smoking: No Smoking Exposure: No Stomache/Intestinal Problems Hepatitis: No Obesity: Yes Genital/Urinary Problems Renal Disease: No Reproductive Problems Previous Pregnancies: Yes Musculoskeletal Problems Arthritis: Yes Fractures: Yes (left femur) Head,Eye,Nose,Throat Problems Cataracts: Yes (bilateral) Endocrine Problems Diabetes Mellitus Type 1: No Diabetes Mellitus Type 2: Yes Other Problems Hospitalization: No Shingles: No Blood Transfusions: No Blood Transfusion Reaction: No Anesthesia Reactions: No Cancer: No Subjective Visit Visit for: follow up visit, post op #3 and knee Immunization / Flu Flu Vaccine in the Last 12 Months: No Flu Vaccine Exclusion Criteria: No Exclusion Criteria History of Present Illness Chief complaint: Right knee pain Patient is a 74-year-old female with right knee pain and right knee arthritis. She is status post right total knee replacement is doing well. She is very happy with her progress. Pain Pain level (0-10): 0 Ambulatory data Ambulatory device: walker Treatments Improvement with previous injections: No Improvement with PT: No Improvement with NSAIDS: no Review of Systems Review of Systems: All systems negative unless otherwise noted in HPI.
[2025-02-17 13:56] VITALS: BP 146/82; PULSE 101; RESP 19; TEMP 36.3; O2SAT 94; BMI 39.0
== END 2025-02-17 13:58 | disposition home or self-care (01) ==
LOC: HODSRG 13:21
PROVIDERS: PCP Internal Medicine; Referring Provider Internal Medicine; Supervising Provider Orthopaedic Surgery Adult Reconstructive Orthopaedic Surgery; Visit Provider Orthopaedic Surgery Adult Reconstructive Orthopaedic Surgery
DX: M17.0 Bilateral primary osteoarthritis of knee (principal); M25.562 Pain in left knee; M25.561 Pain in right knee; Z96.651 Presence of right artificial knee joint; I10 Essential (primary) hypertension; E78.00 Pure hypercholesterolemia, unspecified; E11.9 Type 2 diabetes mellitus without complications
CPT/HCPCS: 99213; G0463

== ENCOUNTER 2025-04-21 14:26 | Outpatient (AMB) | payer MEDICARE, SELFPAY ==
[2025-04-21 14:47] VITALS: BP 126/86; PULSE 92; RESP 18; TEMP 36.3; O2SAT 95; BMI 37.8
--- NOTE | 2025-04-21 14:47 | PD.ORTHCLVIS ---
Vital signs 04/21/25 14:47 Height 1.45 m Height Method Stated Weight 79.549 kg Weight Measurement Method Standing Scale BMI 37.8 BP 126/86 H Blood Pressure Source Automatic Cuff Blood Pressure Location Left Upper Arm Position Sitting Respiration 18 Pulse 92 Pulse Source Monitor Temp 97.4 F Temp Source Temporal Artery Scan Pulse Oximetry (%) 95 Oxygen Delivery Method Room Air Med/Allergies Allergies & Medications Allergies No Known Drug Allergies Allergy (Verified 04/21/25 14:47) Medication Reconciliation amlodipine 10 mg tablet 10 mg PO QDAY 05/28/24 [History Confirmed 04/21/25] hydrochlorothiazide 25 mg tablet 25 mg PO QDAY 05/28/24 [History Confirmed 04/21/25] atorvastatin 40 mg tablet 40 mg PO QDAY 01/04/25 [History Confirmed 04/21/25] empagliflozin 25 mg tablet (Jardiance) 25 mg PO QAM 01/04/25 [History Confirmed 04/21/25] doxycycline hyclate 100 mg tablet 100 mg PO BID #14 tabs 01/05/25 [Rx Confirmed 04/21/25] gabapentin 300 mg capsule 300 mg PO .qhs #30 caps 01/05/25 [Rx Confirmed 04/21/25] oxycodone 5 mg tablet 5 mg PO Q6H PRN pain #28 tabs 01/05/25 [Rx Confirmed 04/21/25] Exam Exam Patient is in no acute distress and is cooperative with the examination today. Breathing is nonlabored. In no respiratory distress. Bilateral extremities were evaluated and demonstrates sensation intact to light touch. Palpable pedal pulses are present. No significant edema is present. Bilateral hips were examined. The patient has no pain with log roll of the hips. Internal rotation to 30 degrees and external rotation to 30 degrees is painless. Negative FADIR. The left knee was examined. The left knee is in [varus] alignment. Range of motion from [0-115] degrees. Knee is stable to varus and valgus as well as AP translation with <5mm. Patient has a [negative] McMurrays. There is [no] pain with patellofemoral compression and [no] crepitus noted. The knee is [tender] to palpation [medially]. Right knee incision is clean dry and intact. Range of motion is 0 to 105 degrees. X-rays demonstrate an intramedullary nail on the left femur. Significant arthritis is present Assessment and Plan Problem List (1) Degenerative arthritis of knee, bilateral: Status: Acute Plan: Patient is a pleasant 73-year-old female with bilateral knee pain and bilateral knee arthritis. She is doing well status post right total knee replacement. Will get a CT scan to evaluate whether a total knee replacement is possible without removing the hardware Advanced Care Planning Discussion Advance care planning discussed with:: patient Office Procedures GNS Level of Care Nursing/Assessment Patient Status: Established Patient Nursing Assessment/Reassesment: Medication Reconciliation, Update PMH in EMR and Vital Signs Coordination of Care: Complex Care and Chronic Disease 1-5, Education Complex Pt/Fam, Consent,records obtained, informed consent, Results/Orders obtained and Staff clarify orders Special Needs: Language special needs Established Patient Charge Established Patient Point Assignment: 95 Established Patient Point Charge: EP Level 3 (80-115) MA Intake Visit Data Collection New Patient or Established: Established Patient (seen at [facility] within 3 years) Reason for Visit:: REQUESTING PHYSICAL THERAPY Seen by Clinical Staff ONLY (RN/MA): No Private Duty Nurse Required: Yes PCP or OBGYN visit in last 3 months: Yes Hx Now: No Do You Feel Safe at Home: Yes Authorities Contacted: N/A Questionairres Past Medical History Past Medical History Have you ever been diagnosed with any of the following: Neurological Problems Seizures: No Cardiology Problems Hypercholesterolemia: Yes Congestive Heart Failure: No Hypertension: Yes Respiratory Problems Chronic Obstructive Pulmonary Disease (COPD): No Smoking: No Smoking Exposure: No Stomache/Intestinal Problems Hepatitis: No Obesity: Yes Genital/Urinary Problems Renal Disease: No Reproductive Problems Previous Pregnancies: Yes Musculoskeletal Problems Arthritis: Yes Fractures: Yes (left femur) Head,Eye,Nose,Throat Problems Cataracts: Yes (bilateral) Endocrine Problems Diabetes Mellitus Type 1: No Diabetes Mellitus Type 2: Yes Other Problems Hospitalization: No Shingles: No Blood Transfusions: No Blood Transfusion Reaction: No Anesthesia Reactions: No Cancer: No Subjective Visit Visit for: follow up visit and knee Immunization / Flu Flu Vaccine in the Last 12 Months: No Flu Vaccine Exclusion Criteria: No Exclusion Criteria History of Present Illness Chief complaint: Right knee pain HISTORY OF PRESENT ILLNESS IShimon, have obtained verbal consent from the patient, to be recorded during this encounter which may include, but not limited to, medical history, examination, treatment plans, and relevant health information.? Patient was informed that recording will be read and reviewed by myself before inclusion in the medical chart. The patient is a 74-year-old female who presents for evaluation of left knee pain. She is accompanied by an rn coronary care unit. She reports significant discomfort in her left knee, describing it as a sensation of her bones rubbing together upon standing. This is accompanied by a feeling of weakness and instability, leading to a fear of falling. She expresses interest in surgical intervention for this issue. It is noteworthy that she had a argentina implanted in her left knee during a procedure in [place]. Pain Pain level (0-10): 0 Ambulatory data Ambulatory device: walker Treatments Improvement with previous injections: No Improvement with PT: No Improvement with NSAIDS: no Review of Systems Review of Systems: All systems negative unless otherwise noted in HPI.
== END 2025-04-21 14:52 | disposition home or self-care (01) ==
LOC: HODSRG 14:26
PROVIDERS: PCP Internal Medicine; Referring Provider Internal Medicine; Supervising Provider Orthopaedic Surgery Adult Reconstructive Orthopaedic Surgery; Visit Provider Orthopaedic Surgery Adult Reconstructive Orthopaedic Surgery
DX: M17.0 Bilateral primary osteoarthritis of knee (principal); M25.562 Pain in left knee; M25.561 Pain in right knee; Z96.651 Presence of right artificial knee joint; I10 Essential (primary) hypertension; E78.00 Pure hypercholesterolemia, unspecified; E11.9 Type 2 diabetes mellitus without complications; E66.9 Obesity, unspecified; Z68.37 Body mass index [BMI] 37.0-37.9, adult
CPT/HCPCS: 99213; G0463

== ENCOUNTER → 2025-05-03 | Outpatient (CLI) | payer MEDICARE, SELFPAY ==
--- NOTE | 2025-05-03 11:30 | XR_ITS ---
Examination: CT left lower extremity, without contrast. 2-D sagittal reconstructions. 2-D coronal reconstructions. 3-D reconstructions. Date and time of exam: May 03, 2025, 1107 hours INDICATIONS: Diagnosis unilateral primary osteoarthritis left knee left knee pain for years CTDI: vol (mGy): 13.6 DLP: (mGycm): 1084 Technique: Multiple 1.25 mm axial sections of the left lower extremity without intravenous contrast have been obtained. 2-D sagittal and coronal reconstructions have been obtained. 3-D reconstructions have been obtained. Low dose protocols were performed. One or more of the following dose reduction techniques were used; automated exposure control, adjustment of the mA and/or KV according to patient size, use of iterative reconstruction technique. Findings: Severe osteopenia Advanced narrowing left hip joint, no acute left hip fracture Long intramedullary femoral argentina noted with healed fracture proximal shaft of the femur Advanced left knee tricompartment osteoarthritis Severe narrowing medial joint space Intramedullary argentina is visualized extending to within 5 mm of the distal cortex of the femur No fracture IMPRESSION: Advanced left knee tricompartment osteoarthritis
== END | disposition home or self-care (01) ==
LOC: CCTX 10:41
PROVIDERS: PCP Internal Medicine; Referring Provider Orthopaedic Surgery Adult Reconstructive Orthopaedic Surgery; Visit Provider Orthopaedic Surgery Adult Reconstructive Orthopaedic Surgery
DX: M17.12 Unilateral primary osteoarthritis, left knee (principal)
CPT/HCPCS: 73700

== ENCOUNTER 2025-05-17 13:07 | Outpatient (AMB) | payer MEDICARE, MEDICAID, SELFPAY ==
--- NOTE | 2025-05-17 13:38 | PD.ORTHCLVIS ---
Vital signs 05/17/25 13:39 Height 1.45 m Height Method Measured Weight 79.01 kg Weight Measurement Method Standing Scale BMI 37.5 BP 118/72 Blood Pressure Source Automatic Cuff Blood Pressure Location Left Upper Arm Position Sitting Respiration 18 Pulse 81 Pulse Source Monitor Temp 96.8 F Temp Source Temporal Artery Scan Pulse Oximetry (%) 93 L Oxygen Delivery Method Room Air Med/Allergies Allergies & Medications Allergies No Known Drug Allergies Allergy (Verified 05/17/25 13:42) Medication Reconciliation amlodipine 10 mg tablet 10 mg PO QDAY 05/28/24 [History Confirmed 05/17/25] hydrochlorothiazide 25 mg tablet 25 mg PO QDAY 05/28/24 [History Confirmed 05/17/25] atorvastatin 40 mg tablet 40 mg PO QDAY 01/04/25 [History Confirmed 05/17/25] empagliflozin 25 mg tablet (Jardiance) 25 mg PO QAM 01/04/25 [History Confirmed 05/17/25] doxycycline hyclate 100 mg tablet 100 mg PO BID #14 tabs 01/05/25 [Rx Confirmed 05/17/25] gabapentin 300 mg capsule 300 mg PO .qhs #30 caps 01/05/25 [Rx Confirmed 05/17/25] oxycodone 5 mg tablet 5 mg PO Q6H PRN pain #28 tabs 01/05/25 [Rx Confirmed 05/17/25] Exam Exam Patient is in no acute distress and is cooperative with the examination today. Breathing is nonlabored. In no respiratory distress. Bilateral extremities were evaluated and demonstrates sensation intact to light touch. Palpable pedal pulses are present. No significant edema is present. Bilateral hips were examined. The patient has no pain with log roll of the hips. Internal rotation to 30 degrees and external rotation to 30 degrees is painless. Negative FADIR. The left knee was examined. The left knee is in [varus] alignment. Range of motion from [0-115] degrees. Knee is stable to varus and valgus as well as AP translation with <5mm. Patient has a [negative] McMurrays. There is [no] pain with patellofemoral compression and [no] crepitus noted. The knee is [tender] to palpation [medially]. Right knee incision is clean dry and intact. Range of motion is 0 to 105 degrees. X-rays demonstrate an intramedullary nail on the left femur. Significant arthritis is present Assessment and Plan Problem List (1) Degenerative arthritis of knee, bilateral: Status: Acute Plan: Patient is a pleasant 73-year-old female with bilateral knee pain and bilateral knee arthritis. She is doing well status post right total knee replacement. Will get a CT scan to evaluate whether a total knee replacement is possible without removing the hardware. In addition, we will start her with physical therapy for both the left and right knee again. She does not want any injections today Advanced Care Planning Discussion Advance care planning discussed with:: patient Office Procedures GNS Level of Care Nursing/Assessment Patient Status: Established Patient Nursing Assessment/Reassesment: Medication Reconciliation, Update PMH in EMR and Vital Signs Coordination of Care: Complex Care and Chronic Disease 1-5, Education Complex Pt/Fam, Consent,records obtained, informed consent, Results/Orders obtained and Staff clarify orders Special Needs: Language special needs Established Patient Charge Established Patient Point Assignment: 95 Established Patient Point Charge: EP Level 3 (80-115) MA Intake Visit Data Collection New Patient or Established: Established Patient (seen at [facility] within 3 years) Reason for Visit:: 3 MONTH F/U RIGHT TKA Seen by Clinical Staff ONLY (RN/MA): No Real Estate Transaction Coordinator Required: Yes PCP or OBGYN visit in last 3 months: Yes Hx Now: No Do You Feel Safe at Home: Yes Authorities Contacted: N/A Questionairres Past Medical History Past Medical History Have you ever been diagnosed with any of the following: Neurological Problems Seizures: No Cardiology Problems Hypercholesterolemia: Yes Congestive Heart Failure: No Hypertension: Yes Respiratory Problems Chronic Obstructive Pulmonary Disease (COPD): No Smoking: No Smoking Exposure: No Stomache/Intestinal Problems Hepatitis: No Obesity: Yes Genital/Urinary Problems Renal Disease: No Reproductive Problems Previous Pregnancies: Yes Musculoskeletal Problems Arthritis: Yes Fractures: Yes (left femur) Head,Eye,Nose,Throat Problems Cataracts: Yes (bilateral) Endocrine Problems Diabetes Mellitus Type 1: No Diabetes Mellitus Type 2: Yes Other Problems Hospitalization: No Shingles: No Blood Transfusions: No Blood Transfusion Reaction: No Anesthesia Reactions: No Cancer: No Subjective Visit Visit for: follow up visit and knee Immunization / Flu Flu Vaccine in the Last 12 Months: No Flu Vaccine Exclusion Criteria: No Exclusion Criteria History of Present Illness Chief complaint: 3 MONTH F/U RIGHT TKA HISTORY OF PRESENT ILLNESS IShimon, have obtained verbal consent from the patient, to be recorded during this encounter which may include, but not limited to, medical history, examination, treatment plans, and relevant health information.? Patient was informed that recording will be read and reviewed by myself before inclusion in the medical chart. The patient is a 74-year-old female who presents for evaluation of left knee pain. She is accompanied by an business education instructor. She reports significant discomfort in her left knee, describing it as a sensation of her bones rubbing together upon standing. This is accompanied by a feeling of weakness and instability, leading to a fear of falling. She expresses interest in surgical intervention for this issue. It is noteworthy that she had a argentina implanted in her left knee during a procedure in [place]. Pain Pain level (0-10): 8 Associated signs & symptoms: other (specify) (CREAKS) Ambulatory data Ambulatory device: walker Treatments Improvement with previous injections: No Improvement with PT: No Improvement with NSAIDS: no Review of Systems Review of Systems: All systems negative unless otherwise noted in HPI.
[2025-05-17 13:39] VITALS: BP 118/72; PULSE 81; RESP 18; TEMP 36; O2SAT 93; BMI 37.5
== END 2025-05-17 14:04 | disposition home or self-care (01) ==
LOC: HODSRG 13:07
PROVIDERS: PCP Internal Medicine; Referring Provider Internal Medicine; Supervising Provider Orthopaedic Surgery Adult Reconstructive Orthopaedic Surgery; Visit Provider Orthopaedic Surgery Adult Reconstructive Orthopaedic Surgery
DX: Z47.1 Aftercare following joint replacement surgery (principal); Z96.651 Presence of right artificial knee joint; M25.562 Pain in left knee; M17.12 Unilateral primary osteoarthritis, left knee; I10 Essential (primary) hypertension; E66.9 Obesity, unspecified; Z68.37 Body mass index [BMI] 37.0-37.9, adult; E11.9 Type 2 diabetes mellitus without complications; Z79.84 Long term (current) use of oral hypoglycemic drugs
CPT/HCPCS: 99213; G0463